=== PATIENT | male | born 1990 | race Two or more races ===

== ENCOUNTER 2023-09-10 12:21 | Emergency (ER) | payer OTHER ==
[~2023-09-10] VITALS: Ht 172.7 cm; Wt 72.6 kg
[2023-09-10] MEDS ORDERED: DICLOFENAC SODI75 MG PO (15:28)
== END 2023-09-10 15:43 | disposition home or self-care (01) ==
LOC: ER 12:22
DX: S90.31XA Contusion of right foot, initial encounter (principal); S90.01XA Contusion of right ankle, initial encounter; W05.1XXA Fall from non-moving nonmotorized scooter, initial encounter; Y93.89 Activity, other specified; Y92.89 Other specified places as the place of occurrence of the external cause; Y99.9 Unspecified external cause status; M79.89 Other specified soft tissue disorders